=== PATIENT | female | born 1980 | race African-American/Black ===

== ENCOUNTER → 2016-12-24 | Outpatient (CLI) | payer MEDICAID | LOC: RAD 09:35 | PROVIDERS: ATTEND Surgery | DX: R59.1 Generalized enlarged lymph nodes (principal); K42.9 Umbilical hernia without obstruction or gangrene; K40.90 Unilateral inguinal hernia, without obstruction or gangrene, not specified as recurrent | CPT/HCPCS: 74177 ==

== ENCOUNTER → 2017-01-13 | Day surgery (SDC) | payer MEDICAID | LOC: RAD 12:34 | PROVIDERS: ATTEND Surgery | PROC: 07BJ3ZX Excision of Left Inguinal Lymphatic, Percutaneous Approach, Diagnostic (ICD-10-PCS; principal; 2017-01-13) | DX: R59.1 Generalized enlarged lymph nodes (principal) | CPT/HCPCS: 38505; 76942; 88305; 88341; 88342 ==

== ENCOUNTER → 2019-02-17 | Outpatient (CLI) | payer MEDICAID ==
--- NOTE | 2019-02-17 11:13 | RADIOLOGY REPORT (SQ) ---
EXAM DESCRIPTION: KNEE LEFT 4 VIEWS COMPLETED DATE/TIME: 02/17/2019 11:00 am REASON FOR STUDY: PAIN IN LEFT KNEE M25.562 PAIN IN LEFT KNEE M25.561 PAIN IN RIGHT KNEE COMPARISON: None. NUMBER OF VIEWS: Four views. TECHNIQUE: AP, lateral, and both oblique radiographic images acquired of the left knee. LIMITATIONS: None. FINDINGS: MINERALIZATION: Normal. BONES: No acute fracture or dislocation. No worrisome bone lesions. No significant osteophytes. JOINT: No effusion. No chondrocalcinosis. OTHER: No other significant finding. IMPRESSION: NEGATIVE STUDY OF THE LEFT KNEE. NO EXPLANATION FOR PAIN. TECHNICAL DOCUMENTATION: JOB ID: [id number] [employer]- All Rights Reserved Reading location - IP/workstation name: [email or web address]
--- NOTE | 2019-02-17 11:13 | RADIOLOGY REPORT (SQ) ---
EXAM DESCRIPTION: KNEE RIGHT 4 VIEWS COMPLETED DATE/TIME: 02/17/2019 11:00 am REASON FOR STUDY: PAIN IN RIGHT KNEE M25.562 PAIN IN LEFT KNEE M25.561 PAIN IN RIGHT KNEE COMPARISON: None. NUMBER OF VIEWS: Four views. TECHNIQUE: AP, lateral, and both oblique radiographic images acquired of the right knee. LIMITATIONS: None. FINDINGS: MINERALIZATION: Normal. BONES: No acute fracture or dislocation. No worrisome bone lesions. JOINT: No effusion. SOFT TISSUES: No soft tissue swelling. No radio-opaque foreign body. OTHER: No other significant finding. IMPRESSION: NEGATIVE STUDY OF THE RIGHT KNEE. NO RADIOGRAPHIC EVIDENCE OF ACUTE INJURY. TECHNICAL DOCUMENTATION: JOB ID: [id number] [employer]- All Rights Reserved Reading location - IP/workstation name: [email or web address]
== END ==
LOC: OD 10:41
PROVIDERS: ATTEND Family Medicine
DX: M25.562 Pain in left knee (principal); M25.561 Pain in right knee